=== PATIENT | female | born 1935 | race Caucasian/White ===

== ENCOUNTER 2024-11-15 10:35 | Day surgery (SDC) | payer MEDICARE ==
[2024-11-15] VITALS (11 sets, daily range): BP systolic 106–141; BP diastolic 47–75; PULSE 76–89; RESP 16–26; TEMP 97.2–98.5; O2SAT 94–100
[~2024-11-15] VITALS: Ht 157.5 cm; Wt 48.7 kg
[2024-11-15] MEDS ORDERED: nitroGLYCERIN 500mcg/5mL D5W 5 ML IV ONE (10:56)
[2024-11-15] MEDS ORDERED: verapamil 2.5 mg/ml inj IV ONE (10:56)
[2024-11-15] MEDS ORDERED: heparin 1,000unit/ml 10ml vial 10 ML ONE (10:56)
[2024-11-15] MEDS ORDERED: iohexol 350MG/ML 100ml bottle IV ONE ×2 (10:56→13:52)
[2024-11-15] MEDS ORDERED: iohexol 350 MG/ML 50ML vial IV ONE (10:56)
[2024-11-15] MEDS ORDERED: LIDOcaine 1% (10mg/ml) 2ml vial ONE (10:56)
[2024-11-15 11:53] LABS: BASOPHILS % (AUTO) 0.8 % (0-1); EOSINOPHILS # (AUTO) 0.1 X10'3 (0-0.9); EOSINOPHILS % (AUTO) 1.9 % (0-6); HEMATOCRIT 38.3 % (35.0-45.0); LYMPHOCYTES # (AUTO) 1.2 X10'3 (1.1-4.8); LYMPHOCYTES % (AUTO) 21.9 % (21-51); MEAN CORPUSCULAR HEMOGLOBIN 31.6 PG (27.0-31.0); MEAN PLATELET VOLUME 9.5 FL (7.4-10.4); MONOCYTES # (AUTO) 0.4 X10'3 (0-0.9); MONOCYTES % (AUTO) 7.7 % (2-12); NEUTROPHILS # (AUTO) 3.7 X10'3 (1.8-7.7); NEUTROPHILS % (AUTO) 67.7 % (42-75); PLATELET COUNT 188 X10'3 (140-440); RED BLOOD COUNT 4.12 X10'6 (4.20-5.60); RED CELL DISTRIBUTION WIDTH 13.1 % (11.5-14.5); WHITE BLOOD COUNT 5.5 X10'3 (4.5-11.0)
[2024-11-15] MEDS ORDERED: midazolam 1 mg/ML 2ml injection ONE (11:54)
[2024-11-15] MEDS ORDERED: fentaNYL/PF 50MCG/1 ML 2ML syringe ONE (11:54)
[2024-11-15] MEDS: LORazepam 0.5 MG tablet PO PRN (11:54)
[2024-11-15] MEDS: diphenhydrAMINE 25mg capsule PO PRN (11:54)
[2024-11-15 12:03] LABS: APTT 25 SECONDS (22-32); INR 1.1 INR; PROTHROMBIN TIME 10.9 SECONDS (9.0-12.0)
[2024-11-15 12:12] LABS: ALBUMIN 3.8 G/DL (3.4-5.0); ANION GAP 9 (8-16); BLOOD UREA NITROGEN 10 MG/DL (7-18); BUN/CREATININE RATIO 13.9 (10.0-20.0); CALCIUM 9.1 MG/DL (8.5-10.1); CHLORIDE 106 MMOL/L (99-107); CHOL/HDL RATIO 3.3 (0.00-4.99); CHOLESTEROL 295 MG/DL (0-200); CREATININE 0.72 MG/DL (0.40-0.90); GLUCOSE 114 MG/DL (70-104); HDL CHOLESTEROL 90 MG/DL (35-60); LDL CHOLESTEROL 173 MG/DL (50-100); POTASSIUM 3.5 MMOL/L (3.5-5.1); PRO BRAIN NATRIURETIC PEPTIDE 7169 PG/ML (0-450); SODIUM 142 MMOL/L (135-145); TOTAL CARBON DIOXIDE 27.1 MMOL/L (24-32); TRIGLYCERIDES 82 MG/DL (20-135); eCRCL 42 ML/MIN; eGFR 77 ML/MIN
[2024-11-15] MEDS ORDERED: POTA-366 PO (12:12)
[2024-11-15] MEDS ORDERED: CYAN-116 PEG (12:12)
[2024-11-15] MEDS ORDERED: VITA-288 PO (12:12)
[2024-11-15] MEDS ORDERED: VITA800012 PO (12:12)
[2024-11-15] MEDS ORDERED: FURO20TA4 PO (12:12)
[2024-11-15] MEDS ORDERED: VITA1CAP PO (12:12)
[2024-11-15] MEDS ORDERED: ASCO100031 PO (12:12)
[2024-11-15] MEDS ORDERED: CHOL12509 PO (12:12)
[2024-11-15] MEDS ORDERED: heparin 1,000 UNITS/NS 500ml 500 ML ONE (13:54)
[2024-11-15] MEDS ORDERED: heparin 25,000 UNIT/250ml bag 250 ML IV ONE (14:08)
[2024-11-15] MEDS ORDERED: clopidogrel 300mg tablet ONE (14:29)
[2024-11-15] MEDS: aspirin 81mg tab.chew PO ONE (16:33)
[2024-11-15] MEDS: normal saline 1000ml 1,000 ML IV SCH (18:45)
[2024-11-16 02:00] VITALS: BP 112/59; PULSE 82; RESP 18; TEMP 97.4; O2SAT 97
[2024-11-16 06:00] VITALS: BP 130/70; PULSE 86; RESP 14; TEMP 97.6; O2SAT 100
[2024-11-16 06:18] LABS: ALANINE AMINOTRANSFERASE 39 U/L (12-78); ALBUMIN/GLOBULIN RATIO 1.2 (1.1-1.5); ALKALINE PHOSPHATASE 58 IU/L (46-116); ANION GAP 6 (8-16); ASPARTATE AMINO TRANSFERASE 25 U/L (10-37); BILIRUBIN,TOTAL 0.6 MG/DL (0.1-1.0); BLOOD UREA NITROGEN 17 MG/DL (7-18); BUN/CREATININE RATIO 19.5 (10.0-20.0); CALCIUM 8.5 MG/DL (8.5-10.1); CHLORIDE 107 MMOL/L (99-107); CREATININE 0.87 MG/DL (0.40-0.90); GLUCOSE 99 MG/DL (70-104); POTASSIUM 3.9 MMOL/L (3.5-5.1); SODIUM 141 MMOL/L (135-145); TOTAL CARBON DIOXIDE 27.6 MMOL/L (24-32); TOTAL PROTEIN 5.6 G/DL (6.4-8.2); eCRCL 35 ML/MIN; eGFR 62 ML/MIN
[2024-11-16] MEDS: atorvastatin 20mg tablet PO SCH (07:20)
[2024-11-16] MEDS: furosemide 20MG tablet PO SCH (07:20)
[2024-11-16] MEDS: clopidogrel 75mg tablet PO SCH (07:21)
[2024-11-16] MEDS: cyanocobalamin 500mcg tablet PO SCH (07:21)
[2024-11-16] MEDS: ascorbic acid 500mg tablet PO SCH (07:21)
[2024-11-16] MEDS: potassium Cl 20 mEq SR tablet PO SCH (07:21)
[2024-11-16] MEDS: vitamin B comp w/Vit. C tab 1 TAB TABLET PO SCH (07:21)
[2024-11-16] MEDS ORDERED: LIDOcaine 1% 30ml preserv. free vial ONE (07:27)
[2024-11-16] MEDS ORDERED: midazolam 1 mg/ML 2ml injection ONE (07:27)
[2024-11-16] MEDS ORDERED: fentaNYL/PF 50MCG/1 ML 2ML syringe ONE (07:28)
[2024-11-16] MEDS ORDERED: heparin 1,000unit/ml 10ml vial 10 ML ONE (07:28)
[2024-11-16] MEDS ORDERED: iohexol 350MG/ML 100ml bottle IV ONE (07:28)
[2024-11-16] MEDS ORDERED: heparin 25,000 UNIT/250ml bag 250 ML IV ONE (07:28)
[2024-11-16] MEDS ORDERED: verapamil 2.5 mg/ml inj IV ONE (07:33)
[2024-11-16] MEDS ORDERED: nitroGLYCERIN 500mcg/5mL D5W 5 ML IV ONE ×2 (07:33→08:44)
[2024-11-16] MEDS ORDERED: iohexol 350 MG/ML 50ML vial IV ONE (09:11)
[2024-11-16] MEDS ORDERED: furosemide 40mg/4ml inj ONE (09:21)
[2024-11-16] MEDS ORDERED: clopidogrel 75mg tablet ONE ×2 (09:27→09:31)
[2024-11-16] MEDS ORDERED: aspirin 81mg tab.chew ONE (09:28)
[2024-11-16 11:00] VITALS: BP 117/60; PULSE 79; RESP 16; TEMP 97; O2SAT 99
[2024-11-16] MEDS ORDERED: OXAZEpam 15mg capsule PO PRN (11:05)
[2024-11-16] MEDS ORDERED: HYDROcodone/acetaminophen 5mg/325mg tablet PO PRN (11:05)
[2024-11-16] MEDS ORDERED: HYDROcodone/acetaminophen 10/325mg tab PO PRN (11:05)
[2024-11-16] MEDS: ergocalciferol (vit D2) capsule 50,000 UNITS (1,250mcg) CAPSULE PO SCH (11:17)
[2024-11-16] MEDS: vitamin E 400 unit capsule PO SCH (11:17)
[2024-11-16 15:00] VITALS: BP 116/61; PULSE 84; RESP 13; TEMP 96.7; O2SAT 98
[2024-11-16] MEDS ORDERED: ASPI-416 PO (15:57)
[2024-11-16] MEDS ORDERED: ROSU20TA98 PO (15:57)
[2024-11-16] MEDS ORDERED: CLOP-32 PO (15:57)
[2024-11-16] MEDS ORDERED: CARV3.12 PO (15:57)
[2024-11-16] MEDS ORDERED: SPIR25TA5 PO (15:57)
[2024-11-17] MEDS ORDERED: aspirin 81mg, enteric-coated 1 TAB TABLET.DR PO SCH (08:00)
== END 2024-11-16 17:50 | disposition home or self-care (01) ==
LOC: SSTAY O 10:35 → PCU 3S 15:01 → SSTAY O 11-16 17:50
PROVIDERS: ATTEND Internal Medicine Cardiovascular Disease
DX: R94.39 Abnormal result of other cardiovascular function study (principal); I25.10 Atherosclerotic heart disease of native coronary artery without angina pectoris; I27.20 Pulmonary hypertension, unspecified; I50.32 Chronic diastolic (congestive) heart failure; I11.0 Hypertensive heart disease with heart failure; I08.3 Combined rheumatic disorders of mitral, aortic and tricuspid valves; Z95.5 Presence of coronary angioplasty implant and graft; Z78.0 Asymptomatic menopausal state; Z82.49 Family history of ischemic heart disease and other diseases of the circulatory system; Z79.899 Other long term (current) drug therapy; Z98.890 Other specified postprocedural states
CPT/HCPCS: 36415; 80053; 80061; 83880; 85025; 85610; 85730; 87081; 93005; 93460; 99152; 99153; A6258; A6402; C1725; C1751; C1769; C1874; C1894; C9600; J1644; J1940; J2003; J2250; J3010; J3490; J7030; Q0163; Q9967; Z7610; 76937; 80048; A6449; C9601; G0378

== ENCOUNTER → 2024-11-28 | Outpatient (CLI) | payer MEDICARE ==
[~2024-11-28] MED LIST: ASCO100031 PO; ASPI-416 PO; CARV3.12 PO; CHOL12509 PO; CLOP-32 PO; CYAN-116 PEG; FURO20TA4 PO; IODIXANOL 320 MG/ML INFUS..BTL 100ML IV ONE; ROSU20TA98 PO; SPIR25TA5 PO; VITA-288 PO; VITA1CAP PO; VITA800012 PO
[2024-11-28 09:57] LABS: BASOPHILS % (AUTO) 0.7 % (0-1); EOSINOPHILS # (AUTO) 0.2 X10'3 (0-0.9); EOSINOPHILS % (AUTO) 3.3 % (0-6); HEMATOCRIT 35.9 % (35.0-45.0); HEMOGLOBIN 11.9 g/dl (12.0-16.0); LYMPHOCYTES # (AUTO) 0.9 X10'3 (1.1-4.8); LYMPHOCYTES % (AUTO) 17.2 % (21-51); MEAN CORPUSCULAR HEMOGLOBIN 31.2 PG (27.0-31.0); MEAN CORPUSCULAR HGB CONC 33.3 g/dL (33.0-36.5); MEAN CORPUSCULAR VOLUME 93.9 FL (78-98); MEAN PLATELET VOLUME 9.7 FL (7.4-10.4); MONOCYTES # (AUTO) 0.4 X10'3 (0-0.9); MONOCYTES % (AUTO) 6.8 % (2-12); NEUTROPHILS # (AUTO) 3.7 X10'3 (1.8-7.7); PLATELET COUNT 190 X10'3 (140-440); RED BLOOD COUNT 3.82 X10'6 (4.20-5.60); RED CELL DISTRIBUTION WIDTH 13.7 % (11.5-14.5); WHITE BLOOD COUNT 5.2 X10'3 (4.5-11.0)
[2024-11-28 10:13] LABS: APTT 28 SECONDS (22-32); INR 1.1 INR; PROTHROMBIN TIME 10.9 SECONDS (9.0-12.0)
[2024-11-28 10:23] LABS: ALANINE AMINOTRANSFERASE 28 U/L (12-78); ALBUMIN 3.8 G/DL (3.4-5.0); ALBUMIN/GLOBULIN RATIO 1.3 (1.1-1.5); ALKALINE PHOSPHATASE 75 IU/L (46-116); ANION GAP 9 (8-16); ASPARTATE AMINO TRANSFERASE 22 U/L (10-37); BILIRUBIN,TOTAL 0.9 MG/DL (0.1-1.0); BLOOD UREA NITROGEN 11 MG/DL (7-18); BUN/CREATININE RATIO 15.9 (10.0-20.0); CHLORIDE 105 MMOL/L (99-107); CREATININE 0.69 MG/DL (0.40-0.90); GLUCOSE 123 MG/DL (70-104); POTASSIUM 4.3 MMOL/L (3.5-5.1); PRO BRAIN NATRIURETIC PEPTIDE 7698 PG/ML (0-450); SODIUM 141 MMOL/L (135-145); TOTAL CARBON DIOXIDE 26.8 MMOL/L (24-32); TOTAL PROTEIN 6.7 G/DL (6.4-8.2); eGFR 80 ML/MIN
--- NOTE | 2024-11-28 10:51 | RADIOLOGY REPORT ---
EXAM: DI CHEST,TWO VIEWS CLINICAL HISTORY: SOB COMPARISON: None TECHNIQUE: Frontal and lateral view of the chest was obtained FINDINGS: Lines and Tubes: None Lungs: No focal consolidation. Pleura: Trace bilateral pleural effusions. No pneumothorax. Cardiomediastinal contours: Unremarkable Bones: No acute osseous abnormality. IMPRESSION: Trace bilateral pleural effusions. Left retrocardiac opacity.
--- NOTE | 2024-11-28 11:04 | VASCULAR REPORT ---
CAROTID ARTERIAL DOPPLER CLINICAL HISTORY: Preop. TECHNIQUE: Doppler study of bilateral carotid/vertebral arteries were performed. Comparison: None FINDINGS: There are nonocclusive atheromatous plaques in the bilateral carotid bulbs and proximal internal roach tid arteries. The bilateral common carotid, external and internal carotid arteries appear patent with out hemodynamically significant stenosis. The spectral wave forms and peak systolic velocities are w ithin normal limits. Antegrade flow is present within the vertebral arteries . Right ICA/CCA PSV ratio = 0.91. Left ICA/CCA PSV ratio = 1.4 . IMPRESSION: 1. No hemodynamically significant stenosis within the carotid arteries. HS:Y
--- NOTE | 2024-11-28 19:12 | RADIOLOGY REPORT ---
Procedure: CT CTA TAVR Reason for study/Clinical History: Chest pain, evaluate for dissection. Comparison Study: None available at time of dictation. Exam Date: 11/28/2024 11:00 AM TECHNIQUE: Multiplanar reformatted images were generated from volumetric data acquired on a multidetector CT [facility]. Cardiac gating was utilized. Arterial phase images were obtained through the chest, abdomen and pelvis following intravenous administration of contrast material. 125 mL visipaque [address] dose reduction techniques were utilized. 3-D reconstructions were performed on an independent work station. Radiation Dose Information: CT Dose: CTDI volume is 65 mGy. Dose-length product is 1714 mGy*cm FINDINGS: Vascular: Aortic measurements: Aortic annulus: 25.6 x 21.2 mm Sinus of valsalva: right cusp 27.3 mm, left cusp 29.2 mm, non-coronary cusp 28 mm Right coronary distance: 14.7 Left coronary distance: 16.8 ST junction 24.1 mm Ascending aorta 28.9 mm Aortic arch 20 mm Descending aorta 17 mm Aortic hiatus 17 mm Upper abdominal aorta 16 mm Minimal abdominal aorta 8.9 mm Right common iliac 4.89 mm, tortuosity index 1.18 Left common iliac 5.67 mm, tortuosity index 1.2 There is normal caliber of aorta. No aortic dissection. Focal penetrating atherosclerotic ulcer in th e infrarenal abdominal aorta measuring up to 5 mm. Dilation of the mid celiac artery measuring up to 6 mm. Aortic arch anatomy is conventional. There is conventional coronary artery anatomy. Scattered calcified atherosclerotic plaque. No central pulmonary embolism. There is normal dimension of the main pulmonary artery. Heart is normal. There are no intracardiac filling defects. No pericardial effusion. Mediastinum: Mediastinal lymphadenopathy.. Lungs: Patchy ground-glass and nodular opacities in the bilateral upper lobes. Atelectasis and conso lidation in the lower lobes. Pleura: Moderate bilateral pleural effusions. Chest wall: No acute abnormality. Abdomen and Pelvis: Liver: Normal in appearance. Gallbladder: Normal in appearance. Spleen: Normal in appearance. Pancreas: Normal in appearance. Adrenals: Normal in appearance. Kidneys: Normal in appearance. Bowel: Normal in appearance. Peritoneum: No free air or free fluid. Lymph nodes: No lymphadenopathy by CT size criteria. Pelvic structures: No pelvic mass. Bones: Normal in appearance. IMPRESSION: 1. TAVR planning with vascular measurements as described above. 2. Small penetrating atherosclerotic ulcer in the infrarenal abdominal aorta measuring up to 5 mm. 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 3. Moderate bilateral pleural effusions. Bibasilar atelectasis and consolidation. Patchy ground-glas s and nodular opacities in the bilateral upper lungs. Mediastinal lymphadenopathy. Superimposed infec tious/inflammatory process is not excluded. Clinical correlation and continued follow-up is recommen ded. HS:Y
== END | disposition home or self-care (01) ==
LOC: RAD 09:23
PROVIDERS: ATTEND Internal Medicine Cardiovascular Disease
DX: I71.43 Infrarenal abdominal aortic aneurysm, without rupture (principal); I35.0 Nonrheumatic aortic (valve) stenosis; R06.02 Shortness of breath; I65.23 Occlusion and stenosis of bilateral carotid arteries; J90 Pleural effusion, not elsewhere classified; J98.11 Atelectasis
CPT/HCPCS: 36415; 71046; 71275; 74174; 75572; 80053; 83880; 85025; 85610; 85730; 93880; Q9967

== ENCOUNTER 2024-12-13 05:30 | Inpatient (IN) | payer MEDICARE ==
--- NOTE | 2024-12-10 14:46 | ELECTROCARDIOGRAPH REPORT ---
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 CHIOMA Dockery Measurements Intervals [place] Rate: 73 P: 77 RI: 175 QRS: 17 QRSD: 114 T: 188 QT: 398 QTc: 439 Interpretive Statements Sinus rhythm Consider left atrial enlargement Anteroseptal infarct, age indeterminate Lateral leads are also involved Electronically Signed On 12-10-2024 16:36:[address] CHIOMA Dockery Please click the below link to view image of tracing.
[2024-12-10 14:47] LABS: BASOPHILS % (AUTO) 0.7 % (0-1); EOSINOPHILS # (AUTO) 0.2 X10'3 (0-0.9); EOSINOPHILS % (AUTO) 3.3 % (0-6); LYMPHOCYTES # (AUTO) 1.1 X10'3 (1.1-4.8); LYMPHOCYTES % (AUTO) 16.6 % (21-51); MEAN CORPUSCULAR HEMOGLOBIN 31.5 PG (27.0-31.0); MEAN CORPUSCULAR HGB CONC 34.5 g/dL (33.0-36.5); MEAN CORPUSCULAR VOLUME 91.3 FL (78-98); MEAN PLATELET VOLUME 9.1 FL (7.4-10.4); MONOCYTES # (AUTO) 0.7 X10'3 (0-0.9); MONOCYTES % (AUTO) 10.7 % (2-12); NEUTROPHILS # (AUTO) 4.4 X10'3 (1.8-7.7); NEUTROPHILS % (AUTO) 68.7 % (42-75); PRE OP HEMATOCRIT 33.8 % (35.0-45.0); PRE OP HEMOGLOBIN 11.7 g/dL (12.0-16.0); PRE OP PLATELET COUNT 220 X10'3 (140-440); PRE OP WHITE BLOOD COUNT 6.4 10'3 (4.8-10.8); RED CELL DISTRIBUTION WIDTH 13.2 % (11.5-14.5)
[2024-12-10 14:54] LABS: BILIRUBIN,URINE NEGATIVE (Neg); CLARITY,URINE CLEAR (Clear); COLOR,URINE YELLOW (Yellow); GLUCOSE, URINE NEGATIVE (Neg); KETONES,URINE NEGATIVE (Neg); LEUKOCYTE ESTERASE ,URINE TRACE (Neg); NITRITES, URINE NEGATIVE (Neg); OCCULT BLOOD,URINE NEGATIVE (Neg); PROTEIN,URINE TRACE mg/dl (Neg)
[2024-12-10 14:55] LABS: UA COLLECTION TYPE NON-SPECIFIED
[2024-12-10 15:07] LABS: BACTERIA,URINE FEW /HPF (Neg); RBC,URINE 0-2 /HPF (0-2); SQUAMOUS EPITHELIAL CELL,UR FEW /LPF (FEW); TRANSITIONAL EPI CELLS,URINE FEW /HPF
[2024-12-10 15:08] LABS: COARSE GRANULAR CAST 0-3 /LPF (NEGATIVE); FINE GRANULAR CAST 0-3 /LPF (NEGATIVE); WBC CLUMPS,URINE FEW /HPF (NEGATIVE)
[2024-12-10 15:10] LABS: ALBUMIN 3.5 G/DL (3.4-5.0); ALBUMIN/GLOBULIN RATIO 0.9 (1.1-1.5); ALKALINE PHOSPHATASE 84 IU/L (46-116); BLOOD UREA NITROGEN 18 MG/DL (7-18); BUN/CREATININE RATIO 21.2 (10.0-20.0); CALCIUM 8.9 MG/DL (8.5-10.1); CHLORIDE 98 MMOL/L (99-107); CREATININE 0.85 MG/DL (0.40-0.90); PRE OP ALT 22 U/L (30-65); PRE OP ANION GAP 9 (8-16); PRE OP AST 16 U/L (10-37); PRE OP GLUCOSE 130 MG/DL (70-104); PRE OP POTASSIUM 4.2 MMOL/L (3.4-5.1); PRE OP SODIUM 133 MMOL/L (135-145); PRO BRAIN NATRIURETIC PEPTIDE 10007 PG/ML (0-450); TOTAL CARBON DIOXIDE 26.2 MMOL/L (24-32); TOTAL PROTEIN 7.4 G/DL (6.4-8.2); eGFR 63 ML/MIN
[2024-12-10 15:34] LABS: PRE OP INR 1.1 INR
[2024-12-10 15:51] LABS: PRE OP PROTIME 11.1 SECONDS (9.0-12.0)
[2024-12-13] VITALS (33 sets, daily range): BP systolic 103–139; BP diastolic 42–71; PULSE 68–94; RESP 9–24; TEMP 97.9–103; O2SAT 80–100
[~2024-12-13] VITALS: Ht 157.5 cm; Wt 47.1 kg
[~2024-12-13 05:30] MED LIST changes: -ASCO100031 PO; -ASPI-416 PO; +ASPI81TA52 PO; -CARV3.12 PO; +CARV3.122 PO; -CHOL12509 PO; -CLOP-32 PO; +CLOP75TA34 PO; -CYAN-116 PEG; -IODIXANOL 320 MG/ML INFUS..BTL 100ML IV ONE; +POTA10CA95 PO; -VITA-288 PO; -VITA1CAP PO; -VITA800012 PO; +aspirin 325mg tablet PO ONE; +nitroPRUSSIDE (NIPRIDE) (200MCG/ML) 100ML Drip IV SCH; +ondansetron/PF 4mg/2ml inj IV PRN; +phenylephrine inj 50 MG in normal saline 250ml IV solN IV SCH
[2024-12-13] MEDS: vancomycin/NS 1 GM ADD-VANTAGE 250 ML IV ONE (05:30)
[2024-12-13] MEDS: ceFAZolin 2gm in dextrose, iso 50 ML IV ONE (05:43)
[2024-12-13] MEDS: DOCUMENT DATE & TIME OF BETA-BLOCKER PO ONE (05:52)
[2024-12-13] MEDS: famotidine 20mg tablet PO ONE (06:33)
[2024-12-13] MEDS: ringers solution, lacted 1,000 ML IV SCH ×2 (06:34→08:15)
[2024-12-13] MEDS ORDERED: heparin 1,000 UNITS/NS 500ml 1,500 ML ONE (06:35)
[2024-12-13] MEDS: aspirin 325mg tablet PO ONE (06:39)
[2024-12-13] MEDS ORDERED: LIDOcaine 1% 30ml preserv. free vial ONE (06:41)
[2024-12-13] MEDS ORDERED: iohexol 350MG/ML 100ml bottle IV ONE (06:41)
[2024-12-13] MEDS ORDERED: protamine sulfate 10mg/ml inj. ONE (07:02)
[2024-12-13] MEDS ORDERED: fentaNYL/PF 50MCG/1 ML 2ML syringe ONE (07:10)
[2024-12-13] MEDS: aspirin 81mg, enteric-coated 1 TAB TABLET.DR PO SCH (08:00)
[2024-12-13] MEDS: clopidogrel 75mg tablet PO SCH (08:00)
[2024-12-13] MEDS: spironolactone 25 MG tablet PO SCH (08:00)
[2024-12-13] MEDS: furosemide 20MG tablet PO SCH (08:00)
[2024-12-13] MEDS: carVEDilol 3.125mg tablet PO SCH (08:00)
[2024-12-13] MEDS ORDERED: morphine 2 MG/ML inj. syringe IV PRN (08:15)
[2024-12-13] MEDS ORDERED: ondansetron/PF 4mg/2ml inj IV PRN ×2 (08:15→08:25)
[2024-12-13] MEDS ORDERED: acetaminophen 1,000mg/100ml IV 100 ML IV PRN (08:15)
[2024-12-13] MEDS ORDERED: hydrALAZINE 20mg/ml inj. IV PRN ×2 (08:15→08:25)
[2024-12-13] MEDS ORDERED: labetalol 20mg/4ml (5mg/ml) syringe IV PRN ×2 (08:15→08:25)
[2024-12-13] MEDS ORDERED: proCHLORperazine 10 MG/2 ml inj IV PRN ×2 (08:15→08:25)
[2024-12-13] MEDS ORDERED: HYDROmorphone/PF 0.2 MG/ML SYRINGE IV PRN (08:15)
[2024-12-13] MEDS ORDERED: meperidine/PF 25mg/ml syringe IV PRN (08:15)
[2024-12-13] MEDS ORDERED: midazolam 1 mg/ML 2ml injection ONE (08:20)
[2024-12-13] MEDS ORDERED: heparin 1,000unit/ml 10ml vial 10 ML ONE (08:20)
[2024-12-13] MEDS ORDERED: propofol inj 20 ML IV ONE ×2 (08:20)
[2024-12-13] MEDS ORDERED: potassium Cl 20mEq/100mL bag 100 ML IV PRN (08:25)
[2024-12-13] MEDS ORDERED: potassium Cl 40MEQ/1/2NS 520ml 520 ML IV PRN (08:25)
[2024-12-13] MEDS ORDERED: magnesium sulf-water 2g/50mL 50 ML IV PRN (08:25)
[2024-12-13] MEDS ORDERED: magnesium sulf-water 4G/100mL 100 ML IV PRN (08:25)
[2024-12-13] MEDS ORDERED: potassium CL 10mEq/100ml bag 100 ML IV PRN (08:25)
[2024-12-13] MEDS ORDERED: ALPRAZolam 0.25mg tablet PO PRN (08:25)
[2024-12-13] MEDS ORDERED: HYDROcodone/acetaminophen 5mg/325mg tablet PO PRN (08:25)
[2024-12-13] MEDS ORDERED: potassium Cl 40MEQ/270ML bag 250 ML IV PRN (08:25)
[2024-12-13] MEDS ORDERED: potassium Cl 20 mEq SR tablet PO PRN (08:25)
[2024-12-13] MEDS ORDERED: diphenhydrAMINE 25mg capsule PO PRN (08:25)
[2024-12-13] MEDS ORDERED: docusate sod 100mg capsule PO PRN (08:25)
[2024-12-13] MEDS ORDERED: pantoprazole 40mg Tablet.DR PO PRN (08:25)
--- NOTE | 2024-12-13 08:31 | OPERATIVE REPORT ---
Operative Report Providers to CC CC: VALENTIN CALLAHAN MD ~ Date of Procedure: December 13, 2024 Pre-Operative Diagnosis: Severe Aortic Stenosis Post-Operative Diagnosis SAME as PRE-Op Procedure Performed 1. Ultrasound-guided access, bilateral femoral vessels. 2. Bilateral femoral angiography. 3. Ascending aortography. 4. Temporary transvenous pacer to the RV apex. 5. Balloon Aortic Valvuloplasty with a 18mm balloon 6. Placement of a 23 mm Dumont S3 Resilia valve. Surgeon: Simi Webb MD Laundry Technician MD Dr. Giovanni Reno MD Anesthesiologist: Osmany Rahman Type of Anesthesia: Other Findings: Severe Aortic Stenosis Complications None Prosthetics\Implants used: Dumont 23mm S3 Resilia Estimated Blood Loss: Minimal Specimen Removed: None Description of Procedure: The patient was brought to the field laborer in a fasting state. They underwent MAC anesthesia. Ultrasound was used to guide access to the bilateral femoral vessels, 7-Anguillan sheath, right femoral artery, 6-Anguillan sheath, left femoral a rtery and left femoral vein. Bilateral femoral angiograms were obtained. Heparin was given to maintain an ACT over 250 seconds. A single Perclose device was placed on the left. We upsized to an 8-Anguillan sheath. Two pigtail catheters placed in the ascending aorta. Ascending aortography done to determine the angle of deployment. Temporary transvenous pacer to the RV apex and confirmed capture. We upsized an 8-Anguillan sheath to a 14-Anguillan Dumont eSheath on the left. We crossed the aortic valve using a straight stiff exchange length Terumo wire supported by a 6-Anguillan AL1 catheter. LV AO pressures were recorded. A NeuroSigma extra support wire was placed in the left ventricle. Next, a 18mm balloon was brought into position and under rapid ventricular pacing, it was inflated. Subsequently, A 23 mm Dumont S3 Resilia valve was brought to position and under rapid right ventricular pacing was deployed. Post-procedure, there was trivial AI and no residual . Guidewires and balloons were removed at this time. The temporary pacer was removed. The 14-Anguillan Dumont eSheath was removed and the Perclose devices tied with adequate hemostasis. The arterial sheath on the right was removed and a single Perclose tied. The venous sheath on the left was removed and a single Angioseal used for hemostasis. Protamine was given to reverse the effects of heparin. The patient was stable post-procedure. Good pulses in the legs and no evidence of bleeding, transferred to the PACU in stable condition. HEMODYNAMICS: Pre: LV: 171/13 mmHg LVEDP: 28mmHg Ao: 116/47, MAP 74mmHg Post: LV: 145/10 mmHg LVEDP: 25 mmHg Ao:143/48, MAP 83mmHg RESULTS: 1. Successful balloon aortic valvuloplasty with a 18 mm balloon. 2. Successful placement of a 23 mm Dumont S3 Resilia valve, left transfemoral approach, single perclose device. ASA 81mg QD 3. Hypertension: Resume if blood pressure remains stable 4. CAD: Status post recent multi-vessel PCI. Resume DAPT 5. Acute on chronic systolic heart failure. Cont GDMT Patient will be watched in the recovery area until stable, then transferred to telemetry at that time. SIMI WEBB MD December 13, 2024 08:31
--- NOTE | 2024-12-13 09:03 | ELECTROCARDIOGRAPH REPORT ---
[facility] Test Date: 2024-12-13 Test Time: 09:01:21 Pat Name: DIEGO DEAN Department: 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 CHIOMA Dockery Measurements Intervals [place] Rate: 73 P: 75 OR: 174 QRS: 11 QRSD: 100 T: 241 QT: 424 QTc: 468 Interpretive Statements Sinus rhythm Anterior infarct, age indeterminate Lateral leads are also involved Electronically Signed On 12-13-2024 19:49:[address] CHIOMA Dockery Please click the below link to view image of tracing.
--- NOTE | 2024-12-13 12:15 | CARDIOLOGY REPORT ---
APPROVED REPORT EXAM: Focused, limited intraprocedural transthoracic 2D, spectral and color flow Doppler echocardiogr am during TAVR deployment. Patient Location: CARDIAC ASSEMBLER FLEXIBLE LEADS Blood Pressure: 112/49 mmHg Heart Rate: 71 bpm Rhythm: Sinus Indications SEVERE AORTIC STENOSIS 23 mm Dumont Sarah 3 Ultra RESILIA Bioprosthetic TAVR 18 mm TRUE BAV Operating Room Manager: Glenny Hilario MD / Interventionalist: Julio Webb MD and Kareen Gordon MD. / Surgeon : Kareen Barragan MD. / Device rep: Bailee MIRANDA Tovar Previous echo: 11/13/24, BVC, AD, EF: 45-50; CAROLYN: 0.55; GRAD: 82 / 50; PKV: 4.54; VHD; m-modAI; mod TR; mod-sevMR; mPI LEFT VENTRICLE Normal LV size and with mild concentric hypertrophy. Overall systolic function is mildly decreased. L VEF is 45-50%. RIGHT VENTRICLE RV is normal size and function. RVSP is estimated at 57 mmHG. ATRIA Left atrium is mildly dilated. AORTIC VALVE Trileaflet AV appears heavily calcified with significant stenosis demonstrated by reduced excursion a nd increased transvalvular and ascending aorta turbulance. CAROLYN is measured at 0.5 cmsq. Peak / mean g radients of 107 / 64 mmHG. Peak velocity is measured at 5.19 m/sec. 18 mm TRUE BAV. Mild insuffici ency. POST DEPLOYMENT (LOOP: 45): 23 mm Dumont Sarah 3 Ultra Resilia bioprosthetic TAVR appears we ll seated with normal function. Trivial paravalvular leaks present at 6, 10, and 11 o'clock in TTE SA X BASE. CAROLYN is measured at 2.5 cmsq. Peak / mean gradients of 13 /6 mmHG. Peak velocity is measured a t 1.80 m/sec. MITRAL VALVE Mitral valve leaflets are mildly thickened with moderate annular calcification. No significant stenos is. Moderate regurgitation. TRICUSPID VALVE The tricuspid valve is normal in structure with mild regurgitation. GREAT VESSELS The aortic root is normal in size. PERICARDIUM Normal pericardium. No effusion.
[2024-12-13] MEDS: sod chloride 0.9% 10ml flush syringe IV SCH (16:00)
[2024-12-13] MEDS: normal saline 1000ml 1,000 ML IV SCH (17:12)
[2024-12-13] MEDS: ceFAZolin 1GM/D5W- ADD-VANTAGE 50 ML IV SCH (17:13)
[2024-12-13] MEDS: acetaminophen 325mg tablet PO PRN (19:07)
[2024-12-13] MEDS: vancomycin/NS 1 GM ADD-VANTAGE 250 ML IV SCH (20:18)
[2024-12-13] MEDS: potassium chloride 10mEq ER tablet PO SCH (20:19)
[2024-12-13] MEDS: atorvastatin 20mg tablet PO SCH (20:22)
[2024-12-14 02:00] VITALS: BP 112/48; PULSE 69; RESP 20; TEMP 98; O2SAT 97
[2024-12-14 06:00] VITALS: BP 121/48; PULSE 76; RESP 24; TEMP 98.8; O2SAT 97
[2024-12-14 06:24] LABS: BASOPHILS % (AUTO) 0.4 % (0-1); EOSINOPHILS # (AUTO) 0.2 X10'3 (0-0.9); EOSINOPHILS % (AUTO) 2.4 % (0-6); HEMATOCRIT 28.3 % (35.0-45.0); HEMOGLOBIN 9.8 g/dl (12.0-16.0); LYMPHOCYTES # (AUTO) 0.7 X10'3 (1.1-4.8); LYMPHOCYTES % (AUTO) 10.7 % (21-51); MEAN CORPUSCULAR HEMOGLOBIN 31.6 PG (27.0-31.0); MEAN CORPUSCULAR HGB CONC 34.5 g/dL (33.0-36.5); MEAN CORPUSCULAR VOLUME 91.8 FL (78-98); MEAN PLATELET VOLUME 8.7 FL (7.4-10.4); MONOCYTES # (AUTO) 0.7 X10'3 (0-0.9); MONOCYTES % (AUTO) 9.7 % (2-12); NEUTROPHILS # (AUTO) 5.3 X10'3 (1.8-7.7); NEUTROPHILS % (AUTO) 76.8 % (42-75); PLATELET COUNT 181 X10'3 (140-440); RED BLOOD COUNT 3.09 X10'6 (4.20-5.60); RED CELL DISTRIBUTION WIDTH 12.9 % (11.5-14.5); WHITE BLOOD COUNT 6.8 X10'3 (4.5-11.0)
[2024-12-14 07:14] LABS: ALANINE AMINOTRANSFERASE 17 U/L (12-78); ALBUMIN 2.4 G/DL (3.4-5.0); ALBUMIN/GLOBULIN RATIO 0.7 (1.1-1.5); ALKALINE PHOSPHATASE 60 IU/L (46-116); ANION GAP 10 (8-16); ASPARTATE AMINO TRANSFERASE 17 U/L (10-37); BILIRUBIN,TOTAL 0.6 MG/DL (0.1-1.0); BLOOD UREA NITROGEN 11 MG/DL (7-18); BUN/CREATININE RATIO 15.5 (10.0-20.0); CALCIUM 8.3 MG/DL (8.5-10.1); CHLORIDE 103 MMOL/L (99-107); CREATININE 0.71 MG/DL (0.40-0.90); GLUCOSE 142 MG/DL (70-104); MAGNESIUM 2.1 MG/DL (1.5-2.4); POTASSIUM 3.9 MMOL/L (3.5-5.1); PRO BRAIN NATRIURETIC PEPTIDE 6113 PG/ML (0-450); SODIUM 138 MMOL/L (135-145); TOTAL CARBON DIOXIDE 25.1 MMOL/L (24-32); TOTAL PROTEIN 5.7 G/DL (6.4-8.2); eCRCL 42 ML/MIN; eGFR 78 ML/MIN
--- NOTE | 2024-12-14 07:14 | RADIOLOGY REPORT ---
EXAM: XR Chest, 1 View CLINICAL INDICATION: s/p TAVR TECHNIQUE: Frontal view of the chest. COMPARISON: None FINDINGS: LUNGS AND PLEURAL SPACES: Pulmonary congestion and edema. Pneumonia cannot be excluded. No pneumot horax. HEART: Unremarkable. No cardiomegaly. MEDIASTINUM: Unremarkable. Normal mediastinal contour. BONES/JOINTS: Unremarkable. No acute fracture. OTHER FINDINGS: . . IMPRESSION: Pulmonary congestion and edema. Pneumonia cannot be excluded.
[2024-12-14 07:19] VITALS: RESP 20; O2SAT 92
--- NOTE | 2024-12-14 07:22 | ELECTROCARDIOGRAPH REPORT ---
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 CHIOMA Dockery Measurements Intervals [place] Rate: 78 P: 59 OR: 169 QRS: 11 QRSD: 99 T: 0 QT: 456 QTc: 520 Interpretive Statements Sinus rhythm Anteroseptal infarct, age indeterminate Lateral leads are also involved Prolonged QT interval Electronically Signed On 12-14-2024 11:32:[address] CHIOMA Dockery Please click the below link to view image of tracing.
[2024-12-14] MEDS: aspirin 81mg tab.chew PO SCH (08:51)
[2024-12-14 08:52] VITALS: BP_SYST 123; PULSE 68
== END 2024-12-14 12:44 | DRG 266 ==
LOC: PAS IN 05:30 → PCU 3S 14:00
PROVIDERS: ADMIT Internal Medicine Cardiovascular Disease; ATTEND Internal Medicine Cardiovascular Disease
PROC: 02RF38Z Replacement of Aortic Valve with Zooplastic Tissue, Percutaneous Approach (ICD-10-PCS; 2024-12-13)
PROC: B41D1ZZ Fluoroscopy of Aorta and Bilateral Lower Extremity Arteries using Low Osmolar Contrast (ICD-10-PCS; principal; 2024-12-13 07:02)
DX: I35.0 Nonrheumatic aortic (valve) stenosis (principal); Z00.6 Encounter for examination for normal comparison and control in clinical research program; I50.23 Acute on chronic systolic (congestive) heart failure; I11.0 Hypertensive heart disease with heart failure; I25.10 Atherosclerotic heart disease of native coronary artery without angina pectoris
CPT/HCPCS: 33361; 36415; 71045; 75630; 76937; 80053; 81001; 82948; 83735; 83880; 85025; 85347; 85610; 85730; 86885; 86900; 86901; 86920; 87081; 87088; 93005; 93308; A4615; A4618; A6258; A6449; C1756; C1758; C1760; C1769; C1894; G0378; J0690; J1644; J2003; J2250; J2371; J2704; J2720; J3010; J3370; J3490; J7030; J7040; J7050; J7120; Q9967

== ENCOUNTER 2024-12-17 16:06 | Outpatient (CLI) | payer MEDICARE, MEDICAID ==
[~2024-12-17 16:06] MED LIST changes: -aspirin 325mg tablet PO ONE; -nitroPRUSSIDE (NIPRIDE) (200MCG/ML) 100ML Drip IV SCH; -ondansetron/PF 4mg/2ml inj IV PRN; -phenylephrine inj 50 MG in normal saline 250ml IV solN IV SCH
--- NOTE | 2024-12-18 16:51 | CARDIOLOGY REPORT ---
APPROVED REPORT EXAM: Limited 2D, Doppler, and color-flow Echocardiogram. Patient Location: OUT-PATIENT Blood Pressure: 122 / 54 mmHg Heart Rate: 70 bpm Rhythm: SINUS Indications LIMITED FOLLOW-UP TAVR 23 mm Dumont Sarah 3 Ultra RESILIA Bioprosthetic TAVR Psychiatric Social Worker Supervisor: MD JOE Previous echo: [facility] SS EF 45-50%; CAROLYN 2.50; Peak v: 1.80; Grad: 13 / 6; TRIV 6,10,11 PVL 2D Dimensions LVOT Diameter 2.28 (1.8-2.4cm) Aortic Valve AoV Peak Hi. 188.3 cm/s AoV VTI 35.9 cm AO Peak GR. 13.7 mmHg AO Mean GR. 8 mmHg LVOT VTI 20.97 cm LVOT Peak Hi. 105.9 cm/s CAROLYN (VMAX) 2.29 cm2 CAROLYN (VTI) 2.38 cm2 Tricuspid Valve TR P. Velocity 303 cm/s RAP ESTIMATE 10 mmHg TR Peak Gr. 37 mmHg RVSP 47 mmHg LEFT VENTRICLE Normal LV size with mild concentric hypertrophy. Overall systolic function is mildly decreased. Overa ll LVEF is about 50% RIGHT VENTRICLE RV is normal size and function. PA systolic pressure of 47 mm of mercury., although improved from pro cedural measurement). ATRIA Left atrium is moderately dilated. Irregular interatrial septum - ? no distinct flow detected, but alfred ggestive of possible PFO. Recommend saline bubble study if indicated. AORTIC VALVE 23 mm Dumont Sarah 3 Ultra Resilia bioprosthetic TAVR appears well seated with normal function. Tri vial paravalvular leak 11 o'clock in TTE SAX BASE. CAROLYN is measured at 2.35 cmsq. Peak / mean gradient s of 14 / 8 mmHG. Peak velocity is measured at 1.88 m/sec. MITRAL VALVE Moderate MV annular, leaflet, and papillary calcification without obvious stenosis. Moderate regurgit ation. (transvalvular Doppler interrogation not doen due to focused AV exam) TRICUSPID VALVE TV appears structurally normal with mild regurgitation. PERICARDIUM Normal pericardium. No effusion. Conclusion Overall LVEF is about 50% Normal LV size with mild concentric hypertrophy. Overall systolic function is mildly decreased. RV is normal size and function. PA systolic pressure of 47 mm of mercury., although improved from pr ocedural measurement). Left atrium is moderately dilated. Irregular interatrial septum - ? no distinct flow detected, but s uggestive of possible PFO. Recommend saline bubble study if indicated. 23 mm Dumont Sarah 3 Ultra Resilia bioprosthetic TAVR appears well seated with normal function. Tr ivial paravalvular leak 11 o'clock in TTE SAX BASE. CAROLYN is measured at 2.35 cmsq. Peak / mean grad ients of 14 / 8 mmHG. Peak velocity is measured at 1.88 m/sec. Moderate MV annular, leaflet, and papillary calcification without obvious stenosis. Moderate regurgi tation. (transvalvular Doppler interrogation not doen due to focused AV exam) TV appears structurally normal with mild regurgitation. Normal pericardium. No effusion.
== END 2024-12-17 23:59 | disposition home or self-care (01) ==
LOC: CARD DIAG 16:06
PROVIDERS: ATTEND Internal Medicine Cardiovascular Disease
DX: Z48.812 Encounter for surgical aftercare following surgery on the circulatory system (principal); I08.1 Rheumatic disorders of both mitral and tricuspid valves; Z95.2 Presence of prosthetic heart valve; Z98.890 Other specified postprocedural states
CPT/HCPCS: 93308